=== PATIENT | female | born 1990 | race Caucasian/White ===

== ENCOUNTER 2017-11-27 18:55 | Emergency (ER) | payer OTHER ==
[~2017-11-27] VITALS: Ht 157.4 cm; Wt 58.5 kg
[~2017-11-27 18:55] MED LIST: AMOXICILLIN500 M2 PO; BACTRIM DS 8001 TA1 PO; DIFLUCAN150 MG PO; MACROBID100 M1 PO; MEDROL DOSEPAK4 MG PO; NAPROSYN500 MG PO; NKHM; NORCO 325 MG-51 TAB PO; TESSALON PERLE100 M1 PO; ULTRAM50 MG PO; ZITHROMAX250 MG PO; ZOFRAN4 MG PO
[2017-11-27 19:24] LABS: BILIRUBIN NEGATIVE (NEGATIVE); BLOOD 1+ (NEGATIVE); CLARITY CLEAR (CLEAR); COLOR YELLOW (YELLOW); GLUCOSE NEGATIVE (NEGATIVE); KETONE NEGATIVE (NEGATIVE); LEUKO ESTERASE TRACE (NEGATIVE); NITRITE NEGATIVE (NEGATIVE); UROBILINOGEN 0.2 E.U./dl (0.2-1.0)
[2017-11-27 19:51] LABS: HEMATOCRIT 36.5 % (37.0-47.0); HEMOGLOBIN 12.3 g/dl (12.0-16.0); MEAN CELL VOLUME 91.9 fl (81.0-99.0); MEAN CORPUSCULAR HGB CONC 33.7 g/dl (33.0-37.0); MEAN PLATELET VOLUME 10.1 fl (9.6-12.3); PLATELET COUNT AUTOMATED 232 10*3/uL (130-400); RED BLOOD COUNT 3.97 10*6/uL (4.10-5.10); RED CELL DISTRI WIDTH 13.1 % (0-14.5); WHITE BLOOD COUNT 15.3 10*3/uL (4.8-10.8)
[2017-11-27 20:02] LABS: BACTERIA 1+; EPITHELIAL CELLS TNTC
[2017-11-27 20:08] LABS: ALBUMIN 3.5 gm/dl (3.1-4.5); ALKALINE PHOSPHATASE 81 U/L (45-117); BUN 7 mg/dl (7-24); CHLORIDE 103 mmol/L (98-107); CREATININE 0.58 mg/dL (0.55-1.02); POTASSIUM 3.4 mmol/L (3.5-5.1); SGOT/AST 13 IU/L (3-35); SGPT/ALT 24 U/L (12-78); SODIUM 137 mmol/L (136-145); TOTAL PROTEIN 7.4 gm/dL (6.4-8.2)
[2017-11-27 20:23] LABS: PLATELET SUFFICIENCY NORMAL (NORMAL); TOTAL CELLS COUNTED 100 #CELLS
== END 2017-11-27 23:24 | disposition home or self-care (01) ==
LOC: ED 18:55
PROVIDERS: Student in an Organized Health Care Education/Training Program
DX: O23.42 Unspecified infection of urinary tract in pregnancy, second trimester (principal); R82.71 Bacteriuria; O26.892 Other specified pregnancy related conditions, second trimester; R10.30 Lower abdominal pain, unspecified; Z3A.20 20 weeks gestation of pregnancy

== ENCOUNTER → 2024-01-27 | Outpatient (CLI) | payer SELFPAY | END | disposition home or self-care (01) | LOC: MRI 08:53 | PROVIDERS: ATTEND Physician Assistant | DX: K83.8 Other specified diseases of biliary tract (principal) ==